=== PATIENT | female | born 1990 | race Caucasian/White ===

== ENCOUNTER 2016-11-21 09:46 | Emergency (ER) | payer MEDICAID ==
[~2016-11-21] VITALS: Ht 162.6 cm; Wt 102.0 kg
[2016-11-21] MEDS ORDERED: SODIUM CHLORIDE 0.9% 1,000ML IVBOLUS ONE (11:30)
[2016-11-21] MEDS ORDERED: SODIUM CHLORIDE FLUSH 10ML SYR IVF ONE (11:30)
[2016-11-21] MEDS ORDERED: ONDANSETRON 2MG/ML, 2ML IVPush ONE (11:30)
[2016-11-21] MEDS ORDERED: KETOROLAC 30 MG/1 ML IVPush ONE (11:30)
[2016-11-21 11:34] LABS: HCG UR OBC PASS
[2016-11-21] MEDS ORDERED: ONDANSETRON 2MG/ML, 2ML ONE (11:40)
[2016-11-21] MEDS ORDERED: KETOROLAC 30 MG/1 ML ONE (11:40)
[2016-11-21] MEDS ORDERED: CEFTRIAXONE PMX 1GM/50ML 50 ML IV ONE (12:00)
[2016-11-21 12:02] LABS: HEMOGLOBIN 13.4 g/dL (11.7-16.4)
[2016-11-21 12:17] LABS: BLOOD UREA NITROGEN 12 mg/dL (7-18)
[2016-11-21 12:20] LABS: ASPARTATE AMINO TRANSFERASE 10 U/L (15-37)
[2016-11-21] MEDS ORDERED: CEFTRIAXONE PMX 1GM/50ML 50 ML ONE (12:20)
[2016-11-21 13:00] VITALS: BP 110/80
== END 2016-11-21 13:03 | disposition home or self-care (01) ==
LOC: ED 11:54
DX: N30.90 Cystitis, unspecified without hematuria (principal); Z90.49 Acquired absence of other specified parts of digestive tract
CPT/HCPCS: 36415; 80053; 81001; 81025; 83690; 85025; 87040; 87077; 87086; 87186; 96361; 96365; 96375; 99284; J0696; J1885; J2405; J7030

== ENCOUNTER 2017-05-10 12:18 | Emergency (ER) | payer MEDICAID ==
[~2017-05-10] VITALS: Ht 161.3 cm; Wt 101.8 kg
[2017-05-10] MEDS ORDERED: SODIUM CHLORIDE 0.9% 1,000 ML IV ONE (12:59)
[2017-05-10] MEDS ORDERED: KETOROLAC 30 MG/1 ML IVPush ONE (13:00)
[2017-05-10] MEDS ORDERED: MORPHINE SULFATE 4 MG/ML, 1ML IVPush PRN (13:00)
[2017-05-10] MEDS ORDERED: ONDANSETRON 2MG/ML, 2ML IVPush ONE (13:00)
[2017-05-10 13:25] LABS: HEMATOCRIT 38.2 % (34.6-47.8); HEMOGLOBIN 13.1 g/dL (11.7-16.4)
[2017-05-10 13:38] LABS: BLOOD UREA NITROGEN 11 mg/dL (7-18)
[2017-05-10] MEDS ORDERED: KETOROLAC 30 MG/1 ML ONE (14:03)
[2017-05-10] MEDS ORDERED: ONDANSETRON 2MG/ML, 2ML ONE (14:03)
[2017-05-10] MEDS ORDERED: MORPHINE SULFATE 4 MG/ML, 1ML ONE (14:03)
[2017-05-10 16:52] VITALS: BP 114/62
== END 2017-05-10 17:20 | disposition home or self-care (01) ==
LOC: ED 13:47
DX: R10.2 Pelvic and perineal pain (principal)
CPT/HCPCS: 36415; 76830; 80048; 81003; 82040; 84703; 85025; 96361; 96374; 96375; 99285; J1885; J2405; J7030

== ENCOUNTER 2017-07-25 09:03 | Emergency (ER) | payer MEDICAID ==
[~2017-07-25] VITALS: Ht 160 cm; Wt 99.0 kg
[2017-07-25] MEDS ORDERED: SODIUM CHLORIDE FLUSH 10ML SYR IVF ONE (09:30)
[2017-07-25] MEDS ORDERED: MORPHINE SULFATE 4 MG/ML, 1ML IVPush PRN (09:30)
[2017-07-25] MEDS ORDERED: SODIUM CHLORIDE 0.9% 1,000ML IVBOLUS ONE (09:30)
[2017-07-25] MEDS ORDERED: ONDANSETRON 2MG/ML, 2ML IVPush ONE (09:30)
[2017-07-25] MEDS ORDERED: ONDANSETRON 2MG/ML, 2ML ONE (09:34)
[2017-07-25] MEDS ORDERED: morphine SULFATE 10 MG/ML, 1ML ONE ×2 (09:34→11:10)
[2017-07-25 09:36] LABS: HCG UR LOT HCG7030192
[2017-07-25 09:42] LABS: HCG UR OBC PASS; HEMATOCRIT 38.8 % (34.6-47.8); HEMOGLOBIN 13.4 g/dL (11.7-16.4); WHITE BLOOD COUNT 10.6 x10^3/uL (3.4-10)
[2017-07-25 09:44] LABS: PATH.CAST-FLAG NOT PRESENT; SPERM-FLAG NOT PRESENT; SRC-FLAG NOT PRESENT; XTAL-FLAG NOT PRESENT; YLC-FLAG NOT PRESENT
[2017-07-25 09:49] LABS: BLOOD UREA NITROGEN 11 mg/dL (7-18)
[2017-07-25 09:53] LABS: ASPARTATE AMINO TRANSFERASE 75 U/L (15-37)
[2017-07-25] MEDS ORDERED: MAALOX/HYOSCYAMINE/LIDOCAINE 45 ML BTL ONE (10:32)
[2017-07-25] MEDS ORDERED: MAALOX/HYOSCYAMINE/LIDOCAINE 45 ML BTL PO ONE (11:00)
[2017-07-25 11:37] VITALS: BP 118/71
== END 2017-07-25 11:47 | disposition home or self-care (01) ==
LOC: ED 10:22
DX: R10.13 Epigastric pain (principal); Z87.891 Personal history of nicotine dependence
CPT/HCPCS: 36415; 74020; 80053; 81001; 81025; 83690; 85025; 87086; 96361; 96374; 96375; 99285; J2405; J7030

== ENCOUNTER 2018-03-01 06:42 | Day surgery (SDC) | payer OTHER ==
[~2018-03-01] VITALS: Ht 162.6 cm; Wt 101.0 kg
[2018-03-01 07:23] VITALS: BP 114/78
[2018-03-01] MEDS ORDERED: LACTATED RINGERS 1,000 ML IV SCH (07:26)
[2018-03-01] MEDS ORDERED: FENTANYL PF 100 MCG/2ML ONE ×2 (08:17→09:57)
[2018-03-01] MEDS ORDERED: MIDAZOLAM 1 MG/ML, 2ML ONE ×2 (08:17→09:57)
[2018-03-01] MEDS ORDERED: BUPIVACAINE/PF-EPI 0.25% 1:200K ONE (08:31)
[2018-03-01] MEDS ORDERED: METHYLERGONOVINE 0.2 MG/ML IM ONE (08:32)
[2018-03-01] MEDS ORDERED: MISOPROSTOL 200 MCG TABLET ONE (08:32)
[2018-03-01] MEDS ORDERED: OXYTOCIN 10 UNITS/ML, 1ML ONE (08:32)
[2018-03-01] MEDS ORDERED: ACETAMINOPHEN 500 MG TABLET PO ONE (09:00)
[2018-03-01] MEDS ORDERED: SCOPOLAMINE PATCH, 1.5MG PATCH.TD72 TD ONE (09:00)
[2018-03-01] MEDS ORDERED: OXYcodone IR 5MG TABLET PO ONE (09:00)
[2018-03-01] MEDS ORDERED: FAMOTIDINE 20 MG TABLET PO ONE (09:00)
[2018-03-01] MEDS ORDERED: GABAPENTIN 300 MG CAPSULE PO ONE (09:00)
[2018-03-01] MEDS ORDERED: ONDANSETRON ODT 8 MG PO ONE (09:00)
[2018-03-01] MEDS ORDERED: KETOROLAC 30 MG/1 ML ONE (09:25)
[2018-03-01] MEDS ORDERED: PROPOFOL 10 MG/ML, 20ML ONE (09:25)
[2018-03-01] MEDS ORDERED: DEXAMETHASONE 4 MG/ML, 1ML ONE (09:25)
[2018-03-01] MEDS ORDERED: PROMETHAZINE 25 MG/ML, 1ML IV PRN (10:00)
[2018-03-01] MEDS ORDERED: FENTANYL PF 100 MCG/2ML IV PRN (10:00)
[2018-03-01] MEDS ORDERED: MEPERIDINE/PF 25MG/0.5ML IVPush PRN (10:00)
[2018-03-01] MEDS ORDERED: HYDROmorphone 1 MG/ML, 1ML IV PRN (10:00)
[2018-03-01] MEDS ORDERED: HYDROcodone/APAP 7.5-325MG/15ML UDC PO PRN (10:00)
[2018-03-01] MEDS ORDERED: hydrALAzine 20 MG/ML, 1ML IV PRN (10:00)
[2018-03-01] MEDS ORDERED: OXYcodone 5 MG/5 ML ORAL.SOL UDC PO PRN (10:00)
[2018-03-01] MEDS ORDERED: ONDANSETRON ODT 8 MG PO PRN (10:00)
[2018-03-01] MEDS ORDERED: LABETALOL 5MG/ML, 20ML IV PRN (10:00)
[2018-03-01] MEDS ORDERED: EPHEDRINE 50 MG/ML, 1ML IVPush PRN (10:00)
[2018-03-01] MEDS ORDERED: MIDAZOLAM 1 MG/ML, 2ML IV PRN (10:00)
[2018-03-01] MEDS ORDERED: ALBUTEROL SULFATE 2.5 MG/3 ML NPPB PRN (10:00)
[2018-03-01] MEDS ORDERED: HYDROcodone/APAP 5/325 TABLET ONE ×2 (10:42→13:19)
[2018-03-01] MEDS ORDERED: HYDROmorphone 2 MG/ML, 1ML IVPush PRN (13:30)
[2018-03-01] MEDS ORDERED: IBUPROFEN 600 MG TABLET PO PRN (13:30)
[2018-03-01] MEDS ORDERED: HYDROcodone/APAP 5/325 TABLET PO PRN (13:30)
[2018-03-01] MEDS ORDERED: KETOROLAC 30 MG/1 ML IVPush PRN (13:30)
[2018-03-01] MEDS ORDERED: OXYcodone/APAP 5/325MG TABLET PO PRN (13:30)
[2018-03-01] MEDS ORDERED: OMNIPAQUE 350 MG/ML, 100ML BOTTLE ONE (16:47)
== END 2018-03-01 18:20 | disposition home or self-care (01) ==
LOC: OUT 06:42
PROVIDERS: ATTEND Obstetrics & Gynecology Female Pelvic Medicine and Reconstructive Surgery
DX: O02.1 Missed abortion (principal); Z3A.01 Less than 8 weeks gestation of pregnancy; G43.909 Migraine, unspecified, not intractable, without status migrainosus; Z98.890 Other specified postprocedural states
CPT/HCPCS: 36415; 59820; 71275; 86850; 86900; 88305; 93005; 93970; J1100; J1885; J2250; J2704; J3010; J7120; Q0162; Q9967; J2210; J2590